=== PATIENT | male | born 1955 | race Caucasian/White ===

== ENCOUNTER → 2019-02-03 | Outpatient (CLI) | payer OTHER ==
--- NOTE | 2019-02-14 16:10 | SLEEPHOME ---
DATE OF PROCEDURE: 02/03/2019 ORDERED BY: Flaquita Zhao MD Diagnostic home sleep testing was performed due to concern for the obstructive sleep apnea syndrome in this patient with a history of excessive somnolence, snoring and irregular breathing in sleep. He has comorbidities of hypertension and cerebrovascular disease. For testing a nocturnal T3 respiratory monitoring device was used. Continuous record was made of pulse, oxygen saturation, airflow, chest and abdominal strain and body position. 9 hours and 59 minutes of data were reviewed. There was 7 hours and 46 minutes marked as time in bed. During the interval marked time in bed, there were 65 respiratory events identified of 10 seconds in duration or greater for a respiratory event index of 8.4. The events were primarily obstructive. Baseline pulse rate 71 beats per minute. Pulse rate ranged 54-150. Baseline saturation 92%. Saturations fell as low as 81%. The oxygen desaturation index was 5.4. Testing was performed in both the supine and nonsupine positions. IMPRESSION: Abnormal home sleep testing with repetitive respiratory events and oxygen desaturations to 81% with a respiratory event index of 8.4 is consistent with the obstructive sleep apnea syndrome. RECOMMENDATIONS: The patient should be referred for formal sleep evaluation and in laboratory pressure titration.
== END ==
LOC: M SLEEP HO 09:57
PROVIDERS: ATTEND Internal Medicine Pulmonary Disease
DX: G47.33 Obstructive sleep apnea (adult) (pediatric) (principal)

== ENCOUNTER → 2019-03-27 | Outpatient (CLI) | payer OTHER ==
--- NOTE | 2019-03-29 14:42 | SLEEPCENT ---
DATE OF PROCEDURE: 03/27/2019 ORDERING PROVIDER: Dr. Zhao Nocturnal polysomnography was performed for the titration of pressure therapy in this patient with a clinical diagnosis of obstructive sleep apnea syndrome confirmed by home testing revealing a respiratory event index of 8.4. For testing, the patient was fit with a [employer] Quattro full face mask of medium size, 5 cm of water pressure applied to the circuit, and the lights were extinguished. 6 hours and 1 minutes data were reviewed. There were 247 minutes of sleep identified. Sleep latency was prolonged at 45 minutes. Rapid eye movement (REM) latency was short at 59 minutes. Sleep architecture was fair with a period of wake at the end of the study. Overall sleep efficiency was 68.9%. The electrocardiogram showed sinus rhythm with an average heart rate of 65 beats per minute. Electroencephalogram (EEG) showed normal waveforms for awake and sleep stages. Respiratory events were reasonably palliated with C-PAP to a pressure of +7. There was some limb activity noted in the EMG leads. Limb movement arousal index of 7.5. IMPRESSION: Obstructive sleep apnea syndrome (G47.33). RECOMMENDATIONS: Nightly use of pressure therapy 7 cm of water.
== END ==
LOC: M SLEEP 19:38
PROVIDERS: ATTEND Internal Medicine Pulmonary Disease
DX: G47.33 Obstructive sleep apnea (adult) (pediatric) (principal)

== ENCOUNTER → 2023-04-02 | Outpatient (CLI) | payer OTHER | LOC: M SLEEP 20:00 | PROVIDERS: ATTEND Nurse Practitioner Family | DX: G47.61 Periodic limb movement disorder (principal) ==

== ENCOUNTER → 2023-07-13 | Outpatient (CLI) | payer OTHER | LOC: M RAD 07:42 | PROVIDERS: ATTEND Surgery Vascular Surgery | DX: I73.9 Peripheral vascular disease, unspecified (principal); R93.6 Abnormal findings on diagnostic imaging of limbs ==

== ENCOUNTER → 2024-12-07 | Outpatient (CLI) | payer OTHER, MEDICARE | LOC: M RAD 09:29 | PROVIDERS: ATTEND Internal Medicine Pulmonary Disease | DX: Z87.891 Personal history of nicotine dependence (principal) ==

== ENCOUNTER → 2025-02-23 | Outpatient (CLI) | payer MEDICARE, OTHER | LOC: M PLAIMG 09:30 | PROVIDERS: ATTEND Internal Medicine Pulmonary Disease | DX: R91.8 Other nonspecific abnormal finding of lung field (principal); J43.2 Centrilobular emphysema; I25.10 Atherosclerotic heart disease of native coronary artery without angina pectoris; I70.0 Atherosclerosis of aorta ==

== ENCOUNTER 2025-06-20 08:48 | Emergency (ER) | payer OTHER ==
[~2025-06-20] VITALS: Ht 170.2 cm; Wt 83.2 kg
[2025-06-20 09:07] VITALS: TEMP 98
[2025-06-20 09:55] LABS: BASO # 0.1 10^3/uL (0.0-0.2); BASO % 0.9 % (0.0-1.0); EOS # 0.5 10^3/uL (0.0-0.5); EOS % 3.9 % (0.0-3.0); LYMPH # 3.2 10^3/uL (1.5-5.0); LYMPH % 25.3 % (24.0-44.0); MONO # 1.0 10^3/uL (0.0-0.8); MONO % 7.9 % (2.0-8.0); NEUTROPHILS # 7.7 10^3/uL (1.5-8.5); NEUTROPHILS % 61.6 % (36.0-66.0); PLATELET COUNT, AUTOMATED 301 10^3/uL (150-450)
[2025-06-20 10:08] LABS: INR 0.95
[2025-06-20 10:15] VITALS: BP 136/83; O2SAT 96
[2025-06-20 10:33] LABS: ALT/SGPT 24.0 U/L (7.0-40); AST/SGOT 21.0 U/L (<34); CALCIUM LEVEL 9.8 MG/DL (8.3-10.6); CARBON DIOXIDE LEVEL 27.0 MMOL/L (20-31); CHLORIDE LEVEL 104.0 MMOL/L (98-107); CREATININE FOR GFR 1.0 MG/DL (0.70-1.30); GLOMERULAR FILTRATION RATE 81.0 (>42); POTASSIUM SERUM 3.9 MMOL/L (3.5-5.1); SODIUM LEVEL 142.0 MMOL/L (136-145)
[2025-06-20 10:34] LABS: CK-MB VALUE MASS 4.6 NG/ML (<3.6)
[2025-06-20 10:37] LABS: FREE T4 1.24 NG/DL (0.89-1.76)
[2025-06-20 10:42] LABS: CPK CREATINE PHOSPHOKINASE 105.0 U/L (46-171); MB/CK RELATIVE INDEX 4.38 (< OR =4)
== END 2025-06-20 10:30 | disposition left against medical advice (07) ==
LOC: M ED 08:48
DX: Z53.21 Procedure and treatment not carried out due to patient leaving prior to being seen by health care provider (principal)

== ENCOUNTER → 2025-06-20 | Outpatient (CLI) | payer OTHER ==
[~2025-06-20] MED LIST: ASPI325T57 PO; ATOR80TA59 PO; CHLO25TA PO; GUAI400T9 PO; LEVO25TA5 PO; LISI20TA33 PO; METF-839 PO; OMEP-173 PO; SYMB80INH INH; SYNT50TA PO; TIOT4MIS3 IH; VENTAER INH
[2025-06-20 08:41] VITALS: BP 147/114; O2SAT 98
== END ==
LOC: M RAD 08:19
PROVIDERS: ATTEND Radiology Diagnostic Radiology
DX: C79.51 Secondary malignant neoplasm of bone (principal); M84.48XA Pathological fracture, other site, initial encounter for fracture; G89.3 Neoplasm related pain (acute) (chronic)